=== PATIENT | male | born 1955 ===

== ENCOUNTER 2020-03-24 06:15 | Day surgery (SDC) | payer OTHER ==
[~2020-03-24 06:15] MED LIST: LEVOTHYROXINE25 MCG PO; ZOCOR20 MG PO
== END 2020-03-24 16:30 | disposition home or self-care (01) ==
LOC: CIR.AMB 06:15 → ADM 07:45 → CIR.AMB 16:30
PROVIDERS: ATTEND Orthopaedic Surgery Hand Surgery
DX: M67.431 Ganglion, right wrist (principal)

== ENCOUNTER → 2022-10-14 07:47 | Outpatient (CLI) | payer OTHER ==
[~2022-10-14 07:47] MED LIST changes: +PROTONIX20 MG PO
== END | disposition home or self-care (01) ==
LOC: LAB 07:47
PROVIDERS: ATTEND Orthopaedic Surgery Hand Surgery
DX: E11.9 Type 2 diabetes mellitus without complications (principal); E78.3 Hyperchylomicronemia; D65 Disseminated intravascular coagulation [defibrination syndrome]; D66 Hereditary factor VIII deficiency; N39.0 Urinary tract infection, site not specified

== ENCOUNTER 2022-10-18 04:30 | Day surgery (SDC) | payer OTHER ==
[~2022-10-18] VITALS: Ht 167.6 cm; Wt 72.6 kg
== END 2022-10-18 10:50 | disposition home or self-care (01) ==
LOC: CIR.AMB 04:30
PROVIDERS: ATTEND Orthopaedic Surgery Hand Surgery
DX: M67.431 Ganglion, right wrist (principal); E03.9 Hypothyroidism, unspecified; Z20.822 Contact with and (suspected) exposure to COVID-19